=== PATIENT | female | born 1990 | race Two or more races ===

== ENCOUNTER 2018-11-07 05:23 | Emergency (ER) | payer MEDICAID, OTHER ==
[~2018-11-07] VITALS: Ht 149.9 cm; Wt 90.7 kg
[2018-11-07 05:40] VITALS: BP 120/82
== END 2018-11-07 07:11 | disposition left against medical advice (07) ==
LOC: ER 05:26
DX: R11.2 Nausea with vomiting, unspecified (principal); R50.9 Fever, unspecified; Z53.21 Procedure and treatment not carried out due to patient leaving prior to being seen by health care provider

== ENCOUNTER 2020-02-27 11:13 | Emergency (ER) | payer MEDICAID ==
[~2020-02-27] VITALS: Ht 149.9 cm; Wt 90.7 kg
[2020-02-27 11:22] VITALS: BP 162/94
[2020-02-27 12:00] LABS: Urine Bacteria NONE SEEN /hpf (None Seen); Urine Blood Negative /uL (Negative); Urine WBC 1 /hpf (0 - 5)
[2020-02-27 12:30] LABS: Basophils # (auto) 0 10 ^3/uL (0-0.2); Basophils % (auto) 0.5 % (0.0-2.0); Eosinophils # (auto) 0.3 10 ^3/uL (0-0.8); Eosinophils % (auto) 6.4 % (0.0-7.0); Hematocrit 42.7 % (36.0-46.0); Hemoglobin 14.5 g/dL (12.2-16.2); Lymphocytes # (auto) 1.6 10 ^3/uL (0.4-5.4); Lymphocytes % (auto) 35.2 % (10.0-50.0); Mean Corpuscular Volume 94.2 fL (80.0-100.0); Monocytes # (auto) 0.6 10 ^3/uL (0-1.3); Monocytes % (auto) 13.2 % (0.0-12.0); Neutrophils # (auto) 2.1 10 ^3/uL (1.6-8.6); Neutrophils % (auto) 44.7 % (37.0-80.0); Nucleated Red Blood Cells % 0.1 %; Platelet Count (auto) 325 10^3/uL (140-450); Red Blood Cells 4.53 10^6/uL (4.0-5.20); Red Cell Distribution Width 13.1 % (11.8-14.3); White Blood Cell 4.6 10^3/uL (4.4-10.8)
[2020-02-27 12:48] LABS: Albumin 3.8 g/dL (3.4-5.0); BUN/Creatinine Ratio 16.9; Potassium 3.8 mmol/L (3.5-5.1)
[2020-02-27 12:51] LABS: Bilirubin, Total 0.3 mg/dL (0.2-1.0); Total Protein 8.1 g/dL (6.4-8.2)
== END 2020-02-27 16:10 | disposition home or self-care (01) ==
LOC: ER 11:13
DX: U07.1 COVID-19 (principal); R05 Cough; R51 Headache; J45.909 Unspecified asthma, uncomplicated; Z32.02 Encounter for pregnancy test, result negative
CPT/HCPCS: 36415; 71045; 80053; 81001; 81025; 85025; 87070; 87635; 87804; 87880

== ENCOUNTER 2025-07-28 18:59 | Inpatient (IN) | payer MEDICAID ==
[~2025-07-28] VITALS: Ht 149.9 cm; Wt 87.8 kg
--- NOTE | 2025-07-28 19:45 | ED.PDOC ---
GI ASSESSMENT HPI Comments 34-year-old female came to ER for abdominal pain. Patient denies any history of abdominal surgeries. States she has been having upper abdominal pain for the past month, progressively worsened in the past 2 days. Noted right upper quadrant abdominal pain Associated with nausea or vomiting. Patient denies yuriy ng , had an 2 weeks ago Chief Complaint: Abdominal Pain Time Seen by MD: 19:45 Reviewed Notes: Nurses Notes Allergies: Coded Allergies: NO KNOWN ALLERGIES (Unverified , 11/07/18) Information Source: Patient Mode of Arrival: Ambulatory Timing: Days Duration: Intermittent Past Medical History PAST MEDICAL HISTORY: Anxiety, Asthma Surgical History: Denies all surgeries CREATIVE SERVICES DESIGNER History: No Pertinent CREATIVE SERVICES DESIGNER History Family History Family History: Reviewed,noncontributory to illness Social History Smoker: Non-Smoker Alcohol: Denies ETOH Use Drugs: Denies Drug Use Lives In: Home Constitutional: denies: chills, diaphoresis, fatigue, fever, malaise, sweats, weakness, others EENTM: denies: blurred vision, double vision, ear bleeding, ear discharge, ear drainage, ear pain, ear ringing, eye pain, eye redness, hearing loss, mouth pa in, mouth swelling, nasal discharge, nose bleeding, nose congestion, nose pain, photophobia, tearing, throat pain, throat swelling, voice changes, others Respiratory: denies: cough, hemoptysis, orthopnea, SOB at rest, shortness of breath, SOB with excertion, stridor, wheezing, others Cardiovascular: denies: chest pain, dizzy spells, diaphoresis, Dyspnea on exertion, edema, irregular heart beat, left arm pain, lightheadedness, palpitations, PND, syncope, others Gastrointestinal: reports: abdominal pain, nausea; denies: abdomen distended, blood streaked bowels, constipated, diarrhea, dysphagia, difficulty swallowing, hematemesis, melena, poor appetite, poor fluid intake, rectal bleeding, rectal pain, vomiting, others Genitourinary: denies: abnormal vagina bleeding, burning, dyspareunia, dysuria, flank pain, frequency, hematuria, incontinence, pain, , vagina discharge, urgency, others Neurological: denies: dizziness, fainting, headache, left sided numbness, left sided weakness, numbness, paresthesia, pre-existing deficit, right sided numbness, right sided weakness, seizure, speech problems, tingling, tremors, weakness, others Musculoskeletal: denies: back pain, gout, joint pain, joint swelling, muscle pain, muscle stiffness, neck pain, others Integumetry: denies: bruises, change in color, change in hair/nails, dryness, laceration, lesions, lumps, rash, wounds, others Allergic/Immunocompromised: denies: Difficulty Healing, Frequent Infections, Hives, Itching, others Hematologic/Lymphatic: denies: anemia, blood clots, easy bleeding, easy bruising, swollen glands, others Endocrine: denies: excessive hunger, excessive sweating, excessive thirst, excessive urination, flushing, intolerance to cold, intolerance to heat, unexplained weight gain, unexplained weight loss, others Psychiatric: denies: anxiety, bipolar disorder, depression, hopeless, panic disorder, schizophrenia, sleepless, suicidal, others Physical Exam General Appearance: No Apparent Distress, Normal HEENT: Normal ENT Inspection, Pharynx Normal, TMs Normal Neck: Full Range of Motion, Non-Tender, Normal, Normal Inspection Respiratory: Chest Non-Tender, Lungs Clear, No Accessory Muscle Use, No Respiratory Distress, Normal Breath Sounds Cardiovascular: No Edema, No JVD, No Murmur, No Gallop, Normal Peripheral Pulses, Regular Rate/Rhythm Breast Exam: Deferred Gastrointestinal: No Organomegaly, No Pulsatile Mass, Normal Bowel Sounds, RUQ, Soft, Tenderness Genitalia: Deferred Pelvic: Deferred Rectal: Deferred Extremities: No calf tenderness, Normal capillary refill, Normal inspection, Normal range of motion, Non-tender, No pedal edema Musculoskeletal : Apperance: Normal Neurologic: Alert, oral and maxillofacial surgery II-XII nml as Tested, No Motor Deficits, Normal Affect, Normal Mood, No Sensory Deficits Cerebellar Function: Normal Reflexes: Normal Skin: Dry, Normal Color, Warm Lymphatic: No Adenopathy Was a procedure done? Was a procedure done?: No GI differential Dx Differential Diagnosis: Cholecystitis, Diverticular disease, Gastritis/PUD, Gastroenteritis, Pancreatitis, UTI, Urolithiasis X-Ray, Labs, Meds, VS Vital Signs Date Time Temp Pulse Resp B/P (MAP) Pulse Ox O2 Delivery O2 Flow Rate FiO2 07/28/25 20:43 91 18 134/94 07/28/25 20:31 91 18 99 Room Air* 0 21 07/28/25 20:30 98.3 91 18 134/91 (105) 99 98.3 07/28/25 19:04 97.0 84 18 143/100 96 97.0 Lab Test 07/28/25 19:53 07/28/25 19:45 Range/Units White Blood Count 10.3 4.4-10.8 10^3/uL Red Blood Count 4.04 4.0-5.20 10^6/uL Hemoglobin 12.8 12.2-16.2 g/dL Hematocrit 37.5 36.0-46.0 % Mean Corpuscular Volume 92.9 80.0-100.0 fL Mean Corpuscular Hemoglobin 31.7 28.0-32.0 pg Mean Corpuscular Hemoglobin Concent 34.1 32.0-36.0 g/dL Red Cell Distribution Width 13.1 11.8-14.3 % Platelet Count 510 H 140-450 10^3/uL Mean Platelet Volume 8.0 6.9-10.8 fL Neutrophils (%) (Auto) 59.3 37.0-80.0 % Lymphocytes (%) (Auto) 31.4 10.0-50.0 % Monocytes (%) (Auto) 6.0 0.0-12.0 % Eosinophils (%) (Auto) 3.0 0.0-7.0 % Basophils (%) (Auto) 0.3 0.0-2.0 % Neutrophils # (Auto) 6.1 1.6-8.6 10 ^3/uL Lymphocytes # (Auto) 3.2 0.4-5.4 10 ^3/uL Monocytes # (Auto) 0.6 0-1.3 10 ^3/uL Eosinophils # (Auto) 0.3 0-0.8 10 ^3/uL Basophils # (Auto) 0 0-0.2 10 ^3/uL Nucleated Red Blood Cells 0.0 % Sodium Level 142 136-145 mmol/L Potassium Level 4.2 3.5-5.1 mmol/L Chloride Level 105 98-107 mmol/L Carbon Dioxide Level 27 20-31 mmol/L Anion Gap 10 5-15 Blood Urea Nitrogen 15 9-23 mg/dL Creatinine 0.67 0.550-1.02 mg/dL Glomerular Filtration Rate Calc 116 >90 mL/min BUN/Creatinine Ratio 22.4 H 10.0-20.0 Serum Glucose 94 74-106 mg/dL Calcium Level 9.9 8.7-10.4 mg/dL Total Bilirubin 0.2 0.2-1.0 mg/dL Aspartate Amino Transferase (AST) 16 13-40 U/L Alanine Aminotransferase (ALT) 20 7-40 U/L Alkaline Phosphatase 51 46-116 U/L Total Protein 7.5 5.7-8.2 g/dL Albumin 4.8 3.2-4.8 g/dL Lipase 40 12-53 U/L Urine Color Yellow Yellow Urine Clarity Clear Clear Urine pH 6.0 5.0-9.0 Urine Specific [place] 1.040 H 1.001-1.035 Urine Protein Trace H Negative Urine Ketones Trace Negative Urine Blood Negative Negative /uL Urine Nitrite Negative Negative Urine Bilirubin Negative Negative Urine Urobilinogen 2 H Negative mg/dL Urine Leukocyte Esterase Negative Negative /uL Urine RBC <1 0 - 4 /hpf Urine Microscopic WBC 4 0-5 /HPF Urine Squamous Epithelial Cells Few <5 /hpf Urine Calcium Oxalate Crystals Mod None Seen Urine Bacteria None seen None Seen /hpf Urine Mucus Few None Seen Urine Glucose Normal Normal mg/dL Urine Test Negative Negative Current Medications Medications (Trade) Dose Ordered Sig/Marilin Route Start Time Stop Time Status Last Admin Ondansetron HCl (Zofran) 4 mg ONCE ONCE IV 07/28/25 19:30 07/28/25 19:31 DC 07/28/25 20:44 Sodium Chloride 1,000 ml @ 1,000 mls/hr Q1H ONCE IVB 07/28/25 19:30 07/28/25 20:29 DC 07/28/25 20:50 Morphine Sulfate 4 mg ONCE ONCE IV 07/28/25 19:30 07/28/25 19:31 DC 07/28/25 20:43 Exam: CT CT AB PEL WITH IV CON ONLY History: abd pain Comparison Study: None TECHNIQUE: A digital parking enforcement officer image was obtained. During the uneventful, intravenous administration of contrast material, multislice data acquisition was obtained through the abdomen and pelvis. The data set was subsequently reconstructed into multiplanar reformats. RADIATION DOSE: CTDI vol 18.81 mGy. DLP 1055.67 mGy.cm Findings: Lungs: There is minimal atelectasis/scarring. Liver: Hepatomegaly. Spleen: Unremarkable. Pancreas: Unremarkable. Gallbladder: There is gallbladder wall thickening. Adrenals: Unremarkable Kidneys: Unremarkable. Pelvic Viscera: 4.8 cm right adnexal cyst. 3.2 cm left adnexal cyst. Vasculature: Unremarkable. Retroperitoneum: Unremarkable. Bowel: No bowel obstruction. The appendix is normal. Musculoskeletal: Unremarkable. Soft tissues: Unremarkable Impression: 1. Nonspecific gallbladder wall thickening. Consider right upper quadrant ultrasound in further assessment. 2. Bilateral pelvic cysts, which may be further assessed with pelvic ultrasound as clinically indicated. Time of 1ST Reevaluation: 19:42 Reevaluation 1ST: Unchanged Patient Education/Counseling: Diagnosis, Treatment Family Education/Counseling: No Family Present SEPSIS Sepsis Screen Date sepsis recognized/suspect: Jul 28, 2025 Time Sepsis recognized/suspect: 1904 Recent Procedure: No On Antibiotic Therapy: No Respiratory Rate >20: No Heart Rate >90: No Temp<36 C (96.8 F) or >38.3 C: No SBP <90 or MAP <65 mmHG: No New Acute Mental Status Change: No Is the patient on CPAP, BIPAP,: No Physician Orders Ct Ab Pel With Iv Con Only (07/28/25 19:28) Gallbladder (07/28/25 22:29) Zosyn Extended Infusion (07/29/25 00:15) Vital Signs Date Time Temp Pulse Resp B/P (MAP) Pulse Ox O2 Delivery O2 Flow Rate FiO2 07/28/25 20:43 91 18 134/94 07/28/25 20:31 91 18 99 Room Air* 0 21 07/28/25 20:30 98.3 91 18 134/91 (105) 99 98.3 07/28/25 19:04 97.0 84 18 143/100 96 97.0 Laboratory Tests Test 07/28/25 19:53 White Blood Count 10.3 10^3/uL (4.4-10.8) Medications Medications Dose Ordered Sig/Marilin Route Start Time Stop Time Status Last Admin Dose Admin Morphine Sulfate 4 mg ONCE ONCE IV 07/28/25 19:30 07/28/25 19:31 DC 07/28/25 20:43 Ondansetron HCl 4 mg ONCE ONCE IV 07/28/25 19:30 07/28/25 19:31 DC 07/28/25 20:44 Sodium Chloride 1,000 ml @ 1,000 mls/hr Q1H ONCE IVB 07/28/25 19:30 07/28/25 20:29 DC 07/28/25 20:50 Departure 1 Departure Time of Disposition: 00:16 Impression: Primary Impression: Acute cholecystitis Disposition: ADMITTED INPATIENT Admit to: Med Surg Condition: Guarded Discharged With: Self Comments 34-year-old female with severe right upper quadrant pain. White blood cell count upper limits of normal. CT of the abdomen and pelvis showed a distended gallbladder. Ultrasound of the gallbladder shows gallstones in the gallbladder wall is upper limits of normal. Patient will need to be admitted for early cholecystitis. Patient was given IV Zosyn antibiotics Critical Care Note Critical Care Time?: Yes (35 min-critical care time only) Critical care comment: Total critical care time: Approximately 36 minutes Due to a high probability of clinically significant, life threatening deterioration, the patient required my highest level of preparedness to intervene emergently and I personally spent this critical care time directly and personally managing the patient. This critical care time included obtaining a history; examining the patient; pulse oximetry; ordering and review of studies; arranging urgent treatment with development of a management plan; evaluation of patient's response to treatment; frequent reassessment; and, discussions with ot her providers. This critical care time was performed to assess and manage the high probability of imminent, life-threatening deterioration that could result in multi-organ failure. It was exclusive of separately billable procedures and treating other patients. Stability Stability form required: No Heart Score Heart Score: Heart Score Response (Comments) Value History N/A 0 EKG N/A 0 Age N/A 0 Risk Factors N/A 0 Troponin N/A 0 Total 0 I personally scribed for NADIYA BLANCHARD MD ([email or web address]) on 07/28/25 at 19:45. Electronically submitted by Ozzie Jaquez ([email or web address]). I personally scribed for NADIYA BLANCHARD MD ([email or web address]) on 07/28/25 at 22:28. Electronically submitted by Ozzie Jaquez [email or web address]). NADIYA BLANCHARD MD Jul 28, 2025 19:45
[2025-07-28 19:57] LABS: Hematocrit 37.5 % (36.0-46.0); Hemoglobin 12.8 g/dL (12.2-16.2); Mean Corpuscular Hemoglobin 31.7 pg (28.0-32.0); Mean Corpuscular Volume 92.9 fL (80.0-100.0); Nucleated Red Blood Cells % 0.0 %
[2025-07-28 20:14] LABS: Alanine Aminotransferase 20 U/L (7-40); Albumin 4.8 g/dL (3.2-4.8); Alkaline Phosphatase 51 U/L (46-116); Anion Gap 10 (5-15); BUN/Creatinine Ratio 22.4 (10.0-20.0); Blood Urea Nitrogen 15 mg/dL (9-23); Calcium 9.9 mg/dL (8.7-10.4); Carbon Dioxide 27 mmol/L (20-31); Chloride 105 mmol/L (98-107); Glucose 94 mg/dL (74-106); Lipase 40 U/L (12-53); Potassium 4.2 mmol/L (3.5-5.1); Sodium 142 mmol/L (136-145); Total Protein 7.5 g/dL (5.7-8.2)
[2025-07-28 20:25] LABS: Bilirubin, Total 0.2 mg/dL (0.2-1.0)
[2025-07-28 20:31] VITALS: PULSE 91; RESP 18; O2SAT 99
[2025-07-28] MEDS: MORPHINE SULFATE 4 MG/ML SYR/VIAL IV ONE (20:43)
[2025-07-28] MEDS: ONDANSETRON HCL 4 MG/2 ML VIAL IV ONE (20:44)
[2025-07-28] MEDS: SODIUM CHLORIDE 0.9% 1,000 ML IVB ONE (20:50)
[2025-07-28] MEDS: IOHEXOL 300 MG/ML 100ML BOTTLE IJ ONE (21:06)
[2025-07-28 21:25] LABS: Urine Protein, UAD TRACE (Negative)
--- NOTE | 2025-07-28 22:20 | DVH ---
Exam: CT CT AB PEL WITH IV CON ONLY History: abd pain Comparison Study: None TECHNIQUE: A digital mixer diamond powder image was obtained. During the uneventful, intravenous administration of c ontrast material, multislice data acquisition was obtained through the abdomen and pelvis. The data s et was subsequently reconstructed into multiplanar reformats. RADIATION DOSE: CTDI vol 18.81 mGy. DLP 1055.67 mGy.cm Findings: Lungs: There is minimal atelectasis/scarring. Liver: Hepatomegaly. Spleen: Unremarkable. Pancreas: Unremarkable. Gallbladder: There is gallbladder wall thickening. Adrenals: Unremarkable Kidneys: Unremarkable. Pelvic Viscera: 4.8 cm right adnexal cyst. 3.2 cm left adnexal cyst. Vasculature: Unremarkable. Retroperitoneum: Unremarkable. Bowel: No bowel obstruction. The appendix is normal. Musculoskeletal: Unremarkable. Soft tissues: Unremarkable Impression: 1. Nonspecific gallbladder wall thickening. Consider right upper quadrant ultrasound in further asse ssment. 2. Bilateral pelvic cysts, which may be further assessed with pelvic ultrasound as clinically indicat ed.
--- NOTE | 2025-07-28 23:37 | DVH ---
CLINICAL INFORMATION: 34 years old, Female; RUQ pain. TECHNIQUE: Grayscale sonographic imaging of the right upper quadrant of the abdomen was performed, a ssisted by color Doppler techniques. COMPARISON: None FINDINGS: The gallbladder wall measures 3 mm in thickness, upper limits of normal. No stones are se en. Negative reported sonographic Bettencourt's sign. The common bile duct was not well-visualized. The liver measures 18.2 cm and demonstrates increased hepatic echogenicity. The pancreas is partly obscured, likely by bowel gas. The visualized portions appear normal. The right kidney measures 11.3 cm. There is no hydronephrosis. Right renal cortical echogenicity an d cortical thickness are within normal limits. IMPRESSION: 1. Cholelithiasis with gallbladder wall measuring upper limits of normal. Acute cholecystitis cannot be excluded in the appropriate clinical setting. 2. Increased hepatic echogenicity may reflect hepatic steatosis or intrinsic hepatocellular disease.
[2025-07-29] VITALS (9 sets, daily range): BP systolic 93–111; BP diastolic 56–69; PULSE 73–86; RESP 14–24; TEMP 97.9–98.8; O2SAT 96–100
[2025-07-29] MEDS ORDERED: HYDROcodone-ACET 5/325MG TAB PO PRN (00:30)
[2025-07-29] MEDS ORDERED: MORPHINE SULFATE INJ 2 MG/ml SYRG IV PRN ×2 (00:30→00:45)
--- NOTE | 2025-07-29 00:38 | DVHHP2 ---
History of Present Illness Reason for Visit: Acute cholecystitis History of Present Illness The patient is a 34-year-old female with past medical history of asthma and anxiety who presented to [facility] ED with complaint of abdominal pain. Patient states she has been experiencing upper abdominal pain for the past month, progressively get worse in the past 2 days, associated with nausea and vomiting, getting worse today that prompted this visit. Patient reports she had an 2 weeks ago. Patient was seen and evaluated in the ED, laboratory data shows WBC 10.3, platelets 510, sodium 142, potassium 4.2, BUN 15, creatinine 0.67, glucose 94, calcium 9.9, lipase 40, blood pressure 134/94, heart rate 92, temperature 98.3 F, O2 saturation 99% on room air. Abdomen/pelvis CT revealing cholelithiasis with gallbladder wall measuring upper limits of normal, acute cholecystitis can not be excluded in the appropriate clinical setting. Increased hepatic echogenicity may reflect hepatic steatosis intrinsic hepatocellular disease. Patient was started on IV antibiotic regimen Zosyn, please see medication orders section in the computer. On my assessment, patient denied chest pain, no headache, no dizziness, no shortness of breaths, no abdominal pain, nausea or vomiting at this moment, no fever, no chills. Patient was admitted for further evaluation and medical management. Past Medical History Anxiety, Asthma Past Surgical History Denies all surgeries Family History Reviewed, noncontributory to the management of this case. Past Social History The patient lives at home, denies smoking, alcohol or illicit drugs abuse. Review of Systems Constitutional: No: Fever, Chills, Sweats, Weakness, Malaise, Other Eyes: No: Pain, Vision change, Conjunctivae inflammation, Eyelid inflammation, Other, Redness ENT: No: Ear pain, Ear discharge, Nose pain, Nose discharge, Nose congestion, Mouth pain, Mouth swelling, Throat pain, Throat swelling, Other Respiratory: No: Cough, Dry, Shortness of breath, SOB with excertion, Wheezing, Hemoptysis, Pleuritic Pain, Sputum, Wheezing, Other Cardiovascular: No: Chest Pain, Palpitations, Orthopnea, Paroxysmal Noc. Dyspnea, Edema, Lt Headedness, Other Gastrointestinal: Nausea, Vomiting, Abdominal Pain; No: Diarrhea, Constipation, Melena, Hematochezia, Other Genitourinary: No Dysuria, No Frequency, No Incontinence, No Hematuria, No Retention, No Other Musculoskeletal: No: other, neck pain, shoulder pain, arm pain, back pain, hand pain, leg pain, foot pain Skin: No: Rash, Lesions, Jaundice, Bruising, Other Neurological: No: Weakness, Numbness, Incoordination, Change in speech, Confusion, Seizures, Other Allergies: Coded Allergies: NO KNOWN ALLERGIES (Unverified , 11/07/18) Medications Current Medications Medications Dose Ordered Sig/Marilin Route Start Time Stop Time Status Last Admin Dose Admin Piperacillin Sod/ Tazobactam Sod 100 ml @ 25 mls/hr Q8HR IV 07/29/25 06:00 UNV Acetaminophen/ Hydrocodone Bitart 1 tab Q4HP PRN PO 07/29/25 00:30 UNV Ondansetron HCl 4 mg Q4HP PRN IV 07/29/25 00:30 UNV Acetaminophen 650 mg Q6HP PRN PO 07/29/25 00:30 UNV Morphine Sulfate 2 mg Q4HPRN PRN IV 07/29/25 00:30 UNV Exam Vital Signs Vital Signs Date Time Temp Pulse Resp B/P (MAP) Pulse Ox O2 Delivery O2 Flow Rate FiO2 07/28/25 20:43 91 18 134/94 07/28/25 20:31 99 Room Air* 0 21 07/28/25 20:30 98.3 98.3 General Appearance: Alert, Oriented X3, Cooperative, No acute distress HEENT: Atraumatic, PERRLA, EOMI, Mucous membr. moist/pink Respiratory: Normal air movement Cardiovascular: Regular rate, Normal S1, Normal S2, No murmurs Abdominal: Normal bowel sounds, Soft, No hepatospenomegaly, No masses, Other (Reports tenderness) Extremities: No clubbing, No cyanosis, No edema, Normal pulses, No tenderness/swelling Skin: No rashes, No breakdown, No significant lesion Neuro: Normal gait, Normal speech, Strength at 5/5 X4 ext, Normal tone, Sensation intact, Cranial nerves 3-12 NL, Reflexes 2+ Psych/Mental Status: Mental status NL, Mood NL Labs/Xrays Labs Test 07/28/25 19:53 07/28/25 19:45 Range/Units White Blood Count 10.3 4.4-10.8 10^3/uL Red Blood Count 4.04 4.0-5.20 10^6/uL Hemoglobin 12.8 12.2-16.2 g/dL Hematocrit 37.5 36.0-46.0 % Mean Corpuscular Volume 92.9 80.0-100.0 fL Mean Corpuscular Hemoglobin 31.7 28.0-32.0 pg Mean Corpuscular Hemoglobin Concent 34.1 32.0-36.0 g/dL Red Cell Distribution Width 13.1 11.8-14.3 % Platelet Count 510 H 140-450 10^3/uL Mean Platelet Volume 8.0 6.9-10.8 fL Neutrophils (%) (Auto) 59.3 37.0-80.0 % Lymphocytes (%) (Auto) 31.4 10.0-50.0 % Monocytes (%) (Auto) 6.0 0.0-12.0 % Eosinophils (%) (Auto) 3.0 0.0-7.0 % Basophils (%) (Auto) 0.3 0.0-2.0 % Neutrophils # (Auto) 6.1 1.6-8.6 10 ^3/uL Lymphocytes # (Auto) 3.2 0.4-5.4 10 ^3/uL Monocytes # (Auto) 0.6 0-1.3 10 ^3/uL Eosinophils # (Auto) 0.3 0-0.8 10 ^3/uL Basophils # (Auto) 0 0-0.2 10 ^3/uL Nucleated Red Blood Cells 0.0 % Sodium Level 142 136-145 mmol/L Potassium Level 4.2 3.5-5.1 mmol/L Chloride Level 105 98-107 mmol/L Carbon Dioxide Level 27 20-31 mmol/L Anion Gap 10 5-15 Blood Urea Nitrogen 15 9-23 mg/dL Creatinine 0.67 0.550-1.02 mg/dL Glomerular Filtration Rate Calc 116 >90 mL/min BUN/Creatinine Ratio 22.4 H 10.0-20.0 Serum Glucose 94 74-106 mg/dL Calcium Level 9.9 8.7-10.4 mg/dL Total Bilirubin 0.2 0.2-1.0 mg/dL Aspartate Amino Transferase (AST) 16 13-40 U/L Alanine Aminotransferase (ALT) 20 7-40 U/L Alkaline Phosphatase 51 46-116 U/L Total Protein 7.5 5.7-8.2 g/dL Albumin 4.8 3.2-4.8 g/dL Lipase 40 12-53 U/L Urine Color Yellow Yellow Urine Clarity Clear Clear Urine pH 6.0 5.0-9.0 Urine Specific [place] 1.040 H 1.001-1.035 Urine Protein Trace H Negative Urine Ketones Trace Negative Urine Blood Negative Negative /uL Urine Nitrite Negative Negative Urine Bilirubin Negative Negative Urine Urobilinogen 2 H Negative mg/dL Urine Leukocyte Esterase Negative Negative /uL Urine RBC <1 0 - 4 /hpf Urine Microscopic WBC 4 0-5 /HPF Urine Squamous Epithelial Cells Few <5 /hpf Urine Calcium Oxalate Crystals Mod None Seen Urine Bacteria None seen None Seen /hpf Urine Mucus Few None Seen Urine Glucose Normal Normal mg/dL Urine Test Negative Negative PATIENT: MOIRA WORRELL ACCT: [id number] UNIT: [id number] : 1990 LOC: ER ROOM / BED: / AGE / SEX: 34 / F ADM STATUS: REG ER SERVICE 27 ORDERING PHYSICIAN: NADIYA BLANCHARD MD PROCEDURE(s): ABPLIV - CT AB PEL WITH IV CON ONLY REASON: abd pain ORDER NUMBER(s): [id number], ACCESSION NUMBER(s): [id number] Exam: CT CT AB PEL WITH IV CON ONLY History: abd pain Comparison Study: None TECHNIQUE: A digital administrative support assoc image was obtained. During the uneventful, intravenous administration of contrast material, multislice data acquisition was obtained through the abdomen and pelvis. The data set was subsequently reconstructed into multiplanar reformats. RADIATION DOSE: CTDI vol 18.81 mGy. DLP 1055.67 mGy.cm Findings: Lungs: There is minimal atelectasis/scarring. Liver: Hepatomegaly. Spleen: Unremarkable. Pancreas: Unremarkable. Gallbladder: There is gallbladder wall thickening. Adrenals: Unremarkable Kidneys: Unremarkable. Pelvic Viscera: 4.8 cm right adnexal cyst. 3.2 cm left adnexal cyst. Vasculature: Unremarkable. Retroperitoneum: Unremarkable. Bowel: No bowel obstruction. The appendix is normal. Musculoskeletal: Unremarkable. Soft tissues: Unremarkable Impression: 1. Nonspecific gallbladder wall thickening. Consider right upper quadrant ultrasound in further assessment. 2. Bilateral pelvic cysts, which may be further assessed with pelvic ultrasound as clinically indicated. ORDERING PHYSICIAN: NADIYA BLANCHARD MD PROCEDURE(s): GBUS - GALLBLADDER REASON: RUQ pain ORDER NUMBER(s): [id number], ACCESSION NUMBER(s): [id number] CLINICAL INFORMATION: 34 years old, Female; RUQ pain. TECHNIQUE: Grayscale sonographic imaging of the right upper quadrant of the abdomen was performed, assisted by color Doppler techniques. COMPARISON: None FINDINGS: The gallbladder wall measures 3 mm in thickness, upper limits of normal. No stones are seen. Negative reported sonographic Bettencourt's sign. The common bile duct was not well-visualized. The liver measures 18.2 cm and demonstrates increased hepatic echogenicity. The pancreas is partly obscured, likely by bowel gas. The visualized portions appear normal. The right kidney measures 11.3 cm. There is no hydronephrosis. Right renal cortical echogenicity and cortical thickness are within normal limits. IMPRESSION: 1. Cholelithiasis with gallbladder wall measuring upper limits of normal. Acute cholecystitis cannot be excluded in the appropriate clinical setting. 2. Increased hepatic echogenicity may reflect hepatic steatosis or intrinsic hepatocellular disease. SEPSIS Sepsis Screen Date sepsis recognized/suspect: Jul 28, 2025 Time Sepsis recognized/suspect: 1904 Recent Procedure: No On Antibiotic Therapy: No Respiratory Rate >20: No Heart Rate >90: No Temp<36 C (96.8 F) or >38.3 C: No SBP <90 or MAP <65 mmHG: No New Acute Mental Status Change: No Is the patient on CPAP, BIPAP,: No Physician Orders Ct Ab Pel With Iv Con Only (07/28/25 19:28) Gallbladder (07/28/25 22:29) Piperacillin-Tazob 3.375gm (Zosyn 3.375g (07/29/25 00:15) Complete Blood Count (07/29/25 04:00) Comprehensive Metabolic Panel (07/29/25 04:00) Piperacillin-Tazob 3.375gm (Zosyn 3.375g (07/29/25 06:00) * Surgical Consult (07/29/25 ) Allergies (07/29/25 00:28) Code Status (07/29/25 00:28) Oxygen Per Hour (07/29/25 00:28) Hydrocodone-Acet 5/325mg Tab (Tavernier 5/32 (07/29/25 00:30) Ondansetron Hcl (Zofran) (07/29/25 00:30) Complete Blood Count (07/30/25 04:00) Comprehensive Metabolic Panel (07/30/25 04:00) Condition: Serious (07/29/25 00:28) Acetaminophen Tablet (Tylenol Tablet) (07/29/25 00:30) Clear Liq Diet (07/29/25 Breakfast) Bedrest With Bathroom Privileg (07/29/25 00:28) Morphine Sulfate Injection (07/29/25 00:30) Sequential Compression Device (07/29/25 ) Vital Signs Date Time Temp Pulse Resp B/P (MAP) Pulse Ox O2 Delivery O2 Flow Rate FiO2 07/28/25 20:43 91 18 134/94 07/28/25 20:31 91 18 99 Room Air* 0 21 07/28/25 20:30 98.3 91 18 134/91 (105) 99 98.3 07/28/25 19:04 97.0 84 18 143/100 96 97.0 Laboratory Tests Test 07/28/25 19:53 White Blood Count 10.3 10^3/uL (4.4-10.8) Medications Medications Dose Ordered Sig/Marilin Route Start Time Stop Time Status Last Admin Dose Admin Morphine Sulfate 4 mg ONCE ONCE IV 07/28/25 19:30 07/28/25 19:31 DC 07/28/25 20:43 4 MG Ondansetron HCl 4 mg ONCE ONCE IV 07/28/25 19:30 07/28/25 19:31 DC 07/28/25 20:44 4 MG Sodium Chloride 1,000 ml @ 1,000 mls/hr Q1H ONCE IVB 07/28/25 19:30 07/28/25 20:29 DC 07/28/25 20:50 1,000 MLS/HR Assessment/Plan Assessment/Plan Acute cholecystitis Thrombocytosis Acute abdominal pain Intractable nausea and vomiting Plan 1. Admit to med surge unit 2. Breathing treatment 3. Pain control management 4. IV antibiotic management 5. Management of fluids and electrolytes 6. Consultation for surgery 7. Diagnostic test abdomen/pelvis CT 8. DVT prophylaxis-on SCDs 9. Repeat labs CBC, CMP in a.m. 10. Continue with current medical management 11. Treatment plan discussed with patient and RN. Patient verbalized understanding. Plan discussed with: Patient, Other (RN) My Orders Orders - DOMINGO AGUILAR DNP Procedure Category Date Status Time Complete Blood Count LAB 07/29/25 Logged 04:00 Comprehensive LAB 07/29/25 Logged Metabolic Panel 04:00 Piperacillin-Tazob PHA 07/29/25 Logged 3.375gm (Zosyn 3.375g 06:00 * Surgical Consult CONS 07/29/25 Transmitted Allergies JOHANA 07/29/25 In Process 00:28 Code Status CODE 07/29/25 Transmitted 00:28 Oxygen Per Hour RT 07/29/25 Transmitted 00:28 Hydrocodone-Acet PHA 07/29/25 Logged 5/325mg Tab (Tavernier 00:30 Ondansetron Hcl PHA 07/29/25 Logged (Zofran) 00:30 Complete Blood Count LAB 07/30/25 Verified 04:00 Comprehensive LAB 07/30/25 Verified Metabolic Panel 04:00 Condition: Serious JOHANA 07/29/25 In Process 00:28 Acetaminophen Tablet PHA 07/29/25 Logged (Tylenol Tablet) 00:30 Clear Liq Diet DIET 07/29/25 Transmitted Breakfast Bedrest With Bathroom JOHANA 07/29/25 In Process Privileg 00:28 Morphine Sulfate PHA 07/29/25 Logged Injection 00:30 Sequential JOHANA 07/29/25 In Process Compression Device Problem List: (1) Acute cholecystitis (2) Thrombocytosis (3) Acute abdominal pain (4) Intractable nausea and vomiting Date of Service: Jul 29, 2025 Billing Provider: DOMINGO AGUILAR DNP Common Visit Codes: [id number] INP/OBS CARE (HIGH) DOMINGO AGUILAR DNP Jul 29, 2025 00:38
[2025-07-29] MEDS ORDERED: NITROGLYCERIN 0.4 MG SL TAB SL PRN (00:45)
[2025-07-29] MEDS: PIPERACILLIN-TAZOB 3.375GM 100 ML IV ONE (01:58)
[2025-07-29 04:29] LABS: Nucleated Red Blood Cells % 0.0 %
[2025-07-29 04:32] LABS: Hematocrit 35.6 % (36.0-46.0); Hemoglobin 12.5 g/dL (12.2-16.2); Mean Corpuscular Hemoglobin 32.6 pg (28.0-32.0); Mean Corpuscular Volume 92.8 fL (80.0-100.0)
[2025-07-29 05:00] LABS: Alanine Aminotransferase 15 U/L (7-40); Albumin 4.2 g/dL (3.2-4.8); Anion Gap 10 (5-15); BUN/Creatinine Ratio 15.5 (10.0-20.0); Bilirubin, Total 0.4 mg/dL (0.2-1.0); Blood Urea Nitrogen 9 mg/dL (9-23); Calcium 9.0 mg/dL (8.7-10.4); Carbon Dioxide 25 mmol/L (20-31); Glucose 90 mg/dL (74-106); Potassium 3.9 mmol/L (3.5-5.1); Sodium 143 mmol/L (136-145); Total Protein 6.8 g/dL (5.7-8.2)
[2025-07-29] MEDS: PIPERACILLIN-TAZOB 3.375GM 100 ML IV SCH (05:22)
[2025-07-29 05:24] LABS: Alkaline Phosphatase 44 U/L (46-116); Chloride 108 mmol/L (98-107)
--- NOTE | 2025-07-29 12:56 | DVHPN2 ---
Subjective Continues to report having right upper quadrant pain Reviewed: Care Plan, H&P, Labs, Medications, Previous Orders Changes from previous H/P or p: No Changes Eyes: No Pain, No Vision change, No Conjunctivae inflammation, No Eyelid inflammation, No Other, No Redness ENT: No Ear pain, No Ear discharge, No Nose pain, No Nose discharge, No Nose congestion, No Mouth pain, No Mouth swelling, No Throat pain, No Throat swelling, No Other Cardiovascular: No Chest Pain, No Palpitations, No Orthopnea, No Paroxysmal Noc. Dyspnea, No Edema, No Lt Headedness, No Other Respiratory: No Cough, No Dry, No Shortness of breath, No SOB with excertion, No Wheezing, No Hemoptysis, No Pleuritic Pain, No Sputum, No Other Gastrointestinal: Nausea, Vomiting, Abdominal Pain; No Diarrhea, No Constipation, No Melena, No Hematochezia, No Other Genitourinary: No Dysuria, No Frequency, No Incontinence, No Hematuria, No Retention, No Other Musculoskeletal: No other, No neck pain, No shoulder pain, No arm pain, No back pain, No hand pain, No leg pain, No foot pain Skin: No Rash, No Lesions, No Jaundice, No Bruising, No Other Objective Vitals Vital Signs Date Time Temp Pulse Resp B/P (MAP) Pulse Ox O2 Delivery O2 Flow Rate FiO2 07/29/25 12:37 16 98 Room Air* 0 21 07/29/25 10:00 86 106/69 (81) 07/29/25 00:20 98.9 98.9 General Appearance: Alert, Oriented X3, Cooperative, mild distress HEENT: Atraumatic, PERRLA Lungs: Clear to auscultation, Normal air movement Cardiovascular: Normal S1, Normal S2 Abdomen: Normal bowel sounds, Soft, No tenderness, No hepatospenomegaly Genitourinary: No Apparent Abnormalities Musculoskeletal: Normal sensory function, Normal motor function Extremities: No clubbing, No cyanosis, No edema, Normal pulses, No tenderness/swelling Neuro: Normal speech Skin: Dry, Intact Psych/Mental Status: Mental status NL, Mood NL Medications Current Medications Medications Dose Ordered Sig/Marilin Route Start Time Stop Time Status Last Admin Dose Admin Piperacillin Sod/ Tazobactam Sod 100 ml @ 25 mls/hr Q8HR IV 07/29/25 06:00 07/29/25 05:22 25 MLS/HR Acetaminophen/ Hydrocodone Bitart 1 tab Q4HP PRN PO 07/29/25 00:30 Ondansetron HCl 4 mg Q4HP PRN IV 07/29/25 00:30 Acetaminophen 650 mg Q6HP PRN PO 07/29/25 00:30 Morphine Sulfate 2 mg Q4HPRN PRN IV 07/29/25 00:30 Nitroglycerin 0.4 mg Q5MINP PRN SL 07/29/25 00:45 Morphine Sulfate 2 mg Q30M PRN IV 07/29/25 00:45 Potassium Chloride/Dextrose/ Sod Cl 1,000 ml @ 100 mls/hr Q10H IV 07/29/25 12:45 UNV Laboratory Results Laboratory Tests 07/29/25 04:06 Chemistry Test 07/28/25 19:53 07/29/25 04:06 Albumin 4.8 g/dL (3.2-4.8) 4.2 g/dL (3.2-4.8) Calcium Level 9.9 mg/dL (8.7-10.4) 9.0 mg/dL (8.7-10.4) Total Protein 7.5 g/dL (5.7-8.2) 6.8 g/dL (5.7-8.2) Lipid panel Test 07/28/25 19:53 Lipase 40 U/L (12-53) LFT Test 07/28/25 19:53 07/29/25 04:06 Alanine Aminotransferase (ALT) 20 U/L (7-40) 15 U/L (7-40) Alkaline Phosphatase 51 U/L (46-116) 44 U/L (46-116) L Aspartate Amino Transferase (AST) 16 U/L (13-40) 15 U/L (13-40) Total Bilirubin 0.2 mg/dL (0.2-1.0) 0.4 mg/dL (0.2-1.0) Urinalysis Test 07/28/25 19:45 Urine Color Yellow (Yellow) Urine Clarity Clear (Clear) Urine pH 6.0 (5.0-9.0) Urine Specific [place] 1.040 (1.001-1.035) Urine Protein Trace (Negative) H Urine Ketones Trace (Negative) Urine Blood Negative /uL (Negative) Urine Nitrite Negative (Negative) Urine Bilirubin Negative (Negative) Urine Urobilinogen 2 mg/dL (Negative) H Urine Leukocyte Esterase Negative /uL (Negative) Urine RBC <1 /hpf (0 - 4) Urine Microscopic WBC 4 /HPF (0-5) Urine Squamous Epithelial Cells Few /hpf (<5) Urine Calcium Oxalate Crystals Mod (None Seen) Urine Bacteria None seen /hpf (None Seen) Urine Mucus Few (None Seen) Urine Glucose Normal mg/dL (Normal) Urine Test Negative (Negative) Labs and/or images reviewed: Labs reviewed by me, Image(s) reviewed by me Assessment/Plan Assessment/Plan Impression: -acute cholecystitis -obesity -leukocytosis, rule out sepsis Plan: -clear liquid diet, NPO after midnight -surgical consultation -start IV fluids -preop diagnostic testing. Chest x-ray -continue antibiotic therapy with Zosyn -pain management Total time spent with patient discussing and formulating plan of care: 35 minutes. This medical document was created using an electronic medical record system with [employer]ister[employer] dictation system. Although this document has been carefully reviewed, there may still be some phonetic and typographical errors. These areas are purely typographical due to imperfections of the software programs, and do not reflect any compromise in the patient's medical care. Plan discussed with: Patient, Other (RN) My Orders Orders - TERESA MORRISON NP Procedure Category Date Status Time * Surgical Consult CONS 07/29/25 Transmitted 12:18 Date of Service: Jul 29, 2025 Billing Provider: TERESA MORRISON NP Common Visit Codes: [id number] INP/OBS CARE(HIGH) TERESA MORRISON NP Jul 29, 2025 12:56
[2025-07-29] MEDS ORDERED: MORPHINE SULFATE 4 MG/ML SYR/VIAL IV PRN (13:00)
[2025-07-29 13:43] LABS: INR 0.97 (0.9-1.15); Partial Thromboplastin Time 28.8 SEC (24.5-34.5); Prothrombin Time 10.3 sec (9.3-11.8)
--- NOTE | 2025-07-29 13:54 | DVH ---
CHEST RADIOGRAPH Indication: pre op/pain Technique: Single frontal view of the chest was obtained Comparison: None FINDINGS: Lines and Tubes: None Lungs: No focal consolidation. Pleura: No effusion. No pneumothorax. Cardiomediastinal contours: Unremarkable Bones: No acute osseous abnormality. IMPRESSION: No acute cardiopulmonary disease.
[2025-07-29] MEDS: D5W/SOD CHL 0.45%/KCL 20MEQ 1,000 ML IV SCH (14:26)
[2025-07-29] MEDS: ACETAMINOPHEN 325 MG TAB PO PRN (14:27)
[2025-07-30] VITALS (8 sets, daily range): BP systolic 95–106; BP diastolic 56–69; PULSE 61–99; RESP 14–19; TEMP 97.4–98.9; O2SAT 92–100
[2025-07-30 06:34] LABS: Hematocrit 33.0 % (36.0-46.0); Hemoglobin 11.7 g/dL (12.2-16.2); Mean Corpuscular Hemoglobin 33.1 pg (28.0-32.0); Mean Corpuscular Volume 93.3 fL (80.0-100.0); Nucleated Red Blood Cells % 0.1 %
[2025-07-30 06:52] LABS: Alanine Aminotransferase 20 U/L (7-40); Anion Gap 9 (5-15); BUN/Creatinine Ratio 11.5 (10.0-20.0); Carbon Dioxide 24 mmol/L (20-31); Glucose 75 mg/dL (74-106); Potassium 3.9 mmol/L (3.5-5.1); Sodium 141 mmol/L (136-145); Total Protein 6.0 g/dL (5.7-8.2)
[2025-07-30 06:53] LABS: Albumin 3.7 g/dL (3.2-4.8)
[2025-07-30 06:54] LABS: Bilirubin, Total 0.7 mg/dL (0.2-1.0)
[2025-07-30 06:59] LABS: Alkaline Phosphatase 34 U/L (46-116); Blood Urea Nitrogen 7 mg/dL (9-23); Calcium 8.4 mg/dL (8.7-10.4); Chloride 108 mmol/L (98-107)
[2025-07-30] MEDS ORDERED: SEMA2INJ3 SC (09:50)
--- NOTE | 2025-07-30 10:31 | DVHINCON2 ---
Date of service: Jul 30, 2025 Family History: Patient reports no known family medical history. Allergies: Coded Allergies: NO KNOWN ALLERGIES (Unverified , 11/07/18) Home Meds Reported Medications Semaglutide (Ozempic) 2 Mg/3 Ml Inj, 2 MG SC QWEEKLY, INJ 07/30/25 Current Medications Current Medications Medications (Trade) Dose Ordered Sig/Marilin Route PRN Reason Start Time Stop Time Status Last Admin Potassium Chloride/Dextrose/ Sod Cl 1,000 ml @ 100 mls/hr Q10H IV 07/29/25 12:45 07/29/25 22:45 Morphine Sulfate 2 mg Q4HPRN PRN IV SEVERE PAIN (7-10 PAIN SCALE) 07/29/25 13:00 Morphine Sulfate 2 mg Q30M PRN IV FOR CHEST PAIN 07/29/25 13:00 Vital Signs Vital Signs Date Time Temp Pulse Resp B/P (MAP) Pulse Ox O2 Delivery O2 Flow Rate FiO2 07/30/25 09:00 97.4 79 18 106/68 (81) 100 97.4 07/29/25 20:00 Room Air* 0 21 Labs/Diagnostic Data Labs Test 07/30/25 04:25 07/29/25 13:07 07/28/25 19:53 07/28/25 19:45 Range/Units White Blood Count 6.5 # 4.4-10.8 10^3/uL Red Blood Count 3.53 L 4.0-5.20 10^6/uL Hemoglobin 11.7 L 12.2-16.2 g/dL Hematocrit 33.0 L 36.0-46.0 % Mean Corpuscular Volume 93.3 80.0-100.0 fL Mean Corpuscular Hemoglobin 33.1 H 28.0-32.0 pg Mean Corpuscular Hemoglobin Concent 35.5 32.0-36.0 g/dL Red Cell Distribution Width 12.7 11.8-14.3 % Platelet Count 440 140-450 10^3/uL Mean Platelet Volume 8.3 6.9-10.8 fL Neutrophils (%) (Auto) 45.9 37.0-80.0 % Lymphocytes (%) (Auto) 38.5 10.0-50.0 % Monocytes (%) (Auto) 8.3 0.0-12.0 % Eosinophils (%) (Auto) 6.9 0.0-7.0 % Basophils (%) (Auto) 0.4 0.0-2.0 % Neutrophils # (Auto) 3.0 1.6-8.6 10 ^3/uL Lymphocytes # (Auto) 2.5 0.4-5.4 10 ^3/uL Monocytes # (Auto) 0.5 0-1.3 10 ^3/uL Eosinophils # (Auto) 0.4 0-0.8 10 ^3/uL Basophils # (Auto) 0 0-0.2 10 ^3/uL Nucleated Red Blood Cells 0.1 % Sodium Level 141 136-145 mmol/L Potassium Level 3.9 3.5-5.1 mmol/L Chloride Level 108 H 98-107 mmol/L Carbon Dioxide Level 24 20-31 mmol/L Anion Gap 9 5-15 Blood Urea Nitrogen 7 L 9-23 mg/dL Creatinine 0.61 0.550-1.02 mg/dL Glomerular Filtration Rate Calc 119 >90 mL/min BUN/Creatinine Ratio 11.5 10.0-20.0 Serum Glucose 75 74-106 mg/dL Calcium Level 8.4 L 8.7-10.4 mg/dL Total Bilirubin 0.7 0.2-1.0 mg/dL Aspartate Amino Transferase (AST) 20 13-40 U/L Alanine Aminotransferase (ALT) 20 7-40 U/L Alkaline Phosphatase 34 L 46-116 U/L Total Protein 6.0 5.7-8.2 g/dL Albumin 3.7 3.2-4.8 g/dL Prothrombin Time 10.3 9.3-11.8 sec Prothrombin Time INR 0.97 0.9-1.15 Activated Partial Thromboplast Time 28.8 24.5-34.5 SEC Lipase 40 12-53 U/L Urine Color Yellow Yellow Urine Clarity Clear Clear Urine pH 6.0 5.0-9.0 Urine Specific [place] [employer] 1.040 H 1.001-1.035 Urine Protein Trace H Negative Urine Ketones Trace Negative Urine Blood Negative Negative /uL Urine Nitrite Negative Negative Urine Bilirubin Negative Negative Urine Urobilinogen 2 H Negative mg/dL Urine Leukocyte Esterase Negative Negative /uL Urine RBC <1 0 - 4 /hpf Urine Microscopic WBC 4 0-5 /HPF Urine Squamous Epithelial Cells Few <5 /hpf Urine Calcium Oxalate Crystals Mod None Seen Urine Bacteria None seen None Seen /hpf Urine Mucus Few None Seen Urine Glucose Normal Normal mg/dL Urine Test Negative Negative Assessment 34 YEAR OLD FEMALE WITH RECURRING EPISODES OF POST PRANDIAL RIGHT UPPER QUADRANT PAINS ASSOCIATED WITH NAUSEA, FATTY FOOD INTOLERANCE, PRESENTLY FREE OF PAIN, ONLY PRIOR OPERATION:Csection, vital signs stable, abdomen non tender, no scleral icterus, LFT'S NORMAL BILIRUBIN NORMAL, GALLSTONES ON IMAGING, LAparoscopic vs open cholecystectomy,risks and complications explained in detail. Plan discussed with: Patient REYMUNDO RENTERIA MD Jul 30, 2025 10:31
[2025-07-30] MEDS ORDERED: fentaNYL CITRATE 100 MCG/2 ML VL ONE (10:48)
[2025-07-30] MEDS ORDERED: MIDAZOLAM HCL 2MG/2ML 2ml VIAL (1mg/ml) ONE (10:48)
[2025-07-30] MEDS ORDERED: METOCLOPRAMIDE HCL 5MG/ml INJ 2ml VIAL ONE (10:48)
[2025-07-30] MEDS ORDERED: LIDOCAINE 2% (LOCAL ANESTH.) PF 5ml SDV ONE (10:48)
[2025-07-30] MEDS ORDERED: ONDANSETRON HCL 4 MG/2 ML VIAL ONE (10:48)
[2025-07-30] MEDS ORDERED: ROCURONIUM 10MG/ML 10ML VIAL IV ONE (10:49)
[2025-07-30] MEDS ORDERED: PROPOFOL 10 MG/ML 20 ML IV ONE (10:49)
[2025-07-30] MEDS: D5W/SOD CHL 0.45%/KCL 20MEQ 1,000 ML IV SCH (11:15)
[2025-07-30] MEDS ORDERED: PHENYLEPHRINE HCL 10 MG/ML VL ONE (11:21)
[2025-07-30] MEDS ORDERED: SUGAMMADEX 200mg/2ml Vial (100MG/ML) IV ONE (11:27)
[2025-07-30] MEDS ORDERED: HYDROmorphone HCL 2 MG/ML VL/or syr ONE (11:29)
[2025-07-30] MEDS: POVIDONE IODINE 10 % TOPICAL OINT 30GM TOP ONE (11:39)
--- NOTE | 2025-07-30 11:55 | DVHOP ---
DATE OF SURGERY: 07/30/2025 PREOPERATIVE DIAGNOSES: Cholelithiasis, cholecystitis. POSTOPERATIVE DIAGNOSES: Cholelithiasis, cholecystitis. SURGEON: Mukesh Anderson MD. BUSINESS DEVELOPMENT SALES EXECUTIVE: Scrub nurse. ANESTHESIA: General endotracheal. ANESTHESIOLOGIST: Reyes Gonzalez nurse traffic signal mechanic. PROCEDURES: Laparoscopy, laparoscopic cholecystectomy. DESCRIPTION OF PROCEDURE: Under general endotracheal anesthesia with the patient's skin prepped and draped, a supraumbilical incision was made and Veress needle inserted by the hanging drop technique in order to establish pneumoperitoneum to 15 mmHg pressure by insufflation with carbon dioxide. With the abdomen fully distended, the needle was removed and replaced with a 5 mm trocar port through which a 0-degree viewing laparoscope was inserted and under direct vision, an additional 5 and 10 mm ports inserted through the right anterior axillary line at the level of the umbilicus and the subxiphoid skin in the midline respectively. Instrumentation was introduced and laparoscopy was conducted revealing no obvious unexpected pathology. The gallbladder was affected by chronic and acute cholecystitis and it was almost entirely intrahepatic, which made the operation quite challenging. The gallbladder was grasped with a grasping forceps and adhesions of the omentum were stripped away from the gallbladder fundus. The infundibular portion of the gallbladder was covered with inflammatory tissue and was circumferentially dissected and placed on tension cephalad. The cystic duct and cystic artery were identified, circumferentially dissected, skeletonized, and traced into the hepatocystic triangle to minimize the potential for an inadvertent injury to the common bile duct. The cystic duct and cystic artery were divided between metallic clips close to the gallbladder, again avoiding any potential injury to the common bile duct to the best of my ability. With the cystic duct and cystic artery divided, the gallbladder was resected from its liver bed by electrocautery and traction. The fully mobilized gallbladder was removed by placement in a specimen extraction bag, which was then withdrawn from the peritoneal cavity through the subxiphoid 10 mm port site. Subsequently, the right upper quadrant was profusely irrigated. Irrigant was aspirated. Hemostasis was meticulously inspected and found to be complete. At the termination of the procedure, there was no evidence of bleeding from either the liver bed or from the port sites. Instrumentation was then withdrawn. Pneumoperitoneum was evacuated. Fascia defect closed using #0 Vicryl. Metallic skin liv were used for approximation of skin edges. The patient remained hemodynamically stable throughout the procedure and left the operating room following an accurate needle and sponge counts. The patient's mother, Kika Hoyt, was thoroughly informed by phone call to [phone]. MD JOSE CARLOS Mccoy/EDMUNDO TID: [id number] RECEIPT: [id number]
[2025-07-30] MEDS ORDERED: ONDANSETRON HCL 4 MG/2 ML VIAL IV PRN (12:00)
[2025-07-30] MEDS ORDERED: METOCLOPRAMIDE HCL 5MG/ml INJ 2ml VIAL IV PRN (12:00)
[2025-07-30] MEDS ORDERED: HYDROmorphone HCL 2 MG/ML VL/or syr IV PRN (12:00)
[2025-07-30] MEDS: ACETAMINOPHEN IV 1000 MG/100ML (10MG/ML) IV ONE (12:00)
--- NOTE | 2025-07-30 12:05 | DVHPN2 ---
Subjective Continues to report having right upper quadrant pain Reviewed: Care Plan, H&P, Labs, Medications, Previous Orders Review of systems Patient is assessed in the recovery room Changes from previous H/P or p: No Changes General: Per HPI Eyes: No Pain, No Vision change, No Conjunctivae inflammation, No Eyelid inflammation, No Other, No Redness ENT: No Ear pain, No Ear discharge, No Nose pain, No Nose discharge, No Nose congestion, No Mouth pain, No Mouth swelling, No Throat pain, No Throat swelling, No Other Cardiovascular: No Chest Pain, No Palpitations, No Orthopnea, No Paroxysmal Noc. Dyspnea, No Edema, No Lt Headedness, No Other Respiratory: No Cough, No Dry, No Shortness of breath, No SOB with excertion, No Wheezing, No Hemoptysis, No Pleuritic Pain, No Sputum, No Other Gastrointestinal: Nausea, Vomiting, Abdominal Pain; No Diarrhea, No Constipation, No Melena, No Hematochezia, No Other Genitourinary: No Dysuria, No Frequency, No Incontinence, No Hematuria, No Retention, No Other Musculoskeletal: No other, No neck pain, No shoulder pain, No arm pain, No back pain, No hand pain, No leg pain, No foot pain Skin: No Rash, No Lesions, No Jaundice, No Bruising, No Other Objective Vitals Vital Signs Date Time Temp Pulse Resp B/P (MAP) Pulse Ox O2 Delivery O2 Flow Rate FiO2 07/30/25 09:00 97.4 79 18 106/68 (81) 100 97.4 07/30/25 08:00 Room Air* 0 21 Intake/Output Intake and Output 07/30/25 07:00 Intake Total 1720 ml Balance 1720 ml Intake Oral 1520 ml IV Total 200 ml # Voids 7 General Appearance: Alert, Oriented X3, Cooperative, mild distress HEENT: Atraumatic, PERRLA Lungs: Clear to auscultation, Normal air movement Cardiovascular: Normal S1, Normal S2 Abdomen: Normal bowel sounds, Soft, No tenderness, No hepatospenomegaly, Other (Surgical puncture site dressings dry and intact) Genitourinary: No Apparent Abnormalities Musculoskeletal: Normal sensory function, Normal motor function Extremities: No clubbing, No cyanosis, No edema, Normal pulses, No tenderness/swelling Neuro: Normal speech Skin: Dry, Intact Psych/Mental Status: Mental status NL, Mood NL Medications Current Medications Medications Dose Ordered Sig/Marilin Route Start Time Stop Time Status Last Admin Dose Admin Piperacillin Sod/ Tazobactam Sod 100 ml @ 25 mls/hr Q8HR IV 07/29/25 06:00 07/30/25 06:37 25 MLS/HR Acetaminophen/ Hydrocodone Bitart 1 tab Q4HP PRN PO 07/29/25 00:30 Ondansetron HCl 4 mg Q4HP PRN IV 07/29/25 00:30 Acetaminophen 650 mg Q6HP PRN PO 07/29/25 00:30 07/29/25 14:27 650 MG Nitroglycerin 0.4 mg Q5MINP PRN SL 07/29/25 00:45 Potassium Chloride/Dextrose/ Sod Cl 1,000 ml @ 100 mls/hr Q10H IV 07/29/25 12:45 07/29/25 22:45 100 MLS/HR Morphine Sulfate 2 mg Q4HPRN PRN IV 07/29/25 13:00 Morphine Sulfate 2 mg Q30M PRN IV 07/29/25 13:00 Potassium Chloride/Dextrose/ Sod Cl 1,000 ml @ 120 mls/hr Q8H20M IV 07/30/25 11:15 UNV Ondansetron HCl 4 mg ONCE PRN IV 07/30/25 12:00 07/30/25 12:01 UNV Metoclopramide HCl 10 mg ONCE PRN IV 07/30/25 12:00 07/30/25 12:01 UNV Hydromorphone HCl 0.5 mg Q10M PRN IV 07/30/25 12:00 07/30/25 12:41 UNV Laboratory Results Laboratory Tests 07/30/25 04:25 Chemistry Test 07/30/25 04:25 Albumin 3.7 g/dL (3.2-4.8) Calcium Level 8.4 mg/dL (8.7-10.4) L Total Protein 6.0 g/dL (5.7-8.2) Coagulation Test 07/29/25 13:07 Prothrombin Time 10.3 sec (9.3-11.8) Prothrombin Time INR 0.97 (0.9-1.15) Activated Partial Thromboplast Time 28.8 SEC (24.5-34.5) LFT Test 07/30/25 04:25 Alanine Aminotransferase (ALT) 20 U/L (7-40) Alkaline Phosphatase 34 U/L (46-116) L Aspartate Amino Transferase (AST) 20 U/L (13-40) Total Bilirubin 0.7 mg/dL (0.2-1.0) Urinalysis Test 07/28/25 19:45 Urine Color Yellow (Yellow) Urine Clarity Clear (Clear) Urine pH 6.0 (5.0-9.0) Urine Specific [place] 1.040 (1.001-1.035) Urine Protein Trace (Negative) H Urine Ketones Trace (Negative) Urine Blood Negative /uL (Negative) Urine Nitrite Negative (Negative) Urine Bilirubin Negative (Negative) Urine Urobilinogen 2 mg/dL (Negative) H Urine Leukocyte Esterase Negative /uL (Negative) Urine RBC <1 /hpf (0 - 4) Urine Microscopic WBC 4 /HPF (0-5) Urine Squamous Epithelial Cells Few /hpf (<5) Urine Calcium Oxalate Crystals Mod (None Seen) Urine Bacteria None seen /hpf (None Seen) Urine Mucus Few (None Seen) Urine Glucose Normal mg/dL (Normal) Urine Test Negative (Negative) Labs and/or images reviewed: Labs reviewed by me, Image(s) reviewed by me Assessment/Plan Assessment/Plan Impression: -acute cholecystitis -obesity -leukocytosis, rule out sepsis Plan: Events: Patient is status post laparoscopic cholecystectomy. Surgery uneventful. -continue IV fluids -clear liquid diet -PUD, DVT prophylaxis -Incentive spirometer q.1 hour while awake -continue antibiotic therapy with Zosyn -pain management -repeat labs in a.m. Total time spent with patient discussing and formulating plan of care: 35 minutes. This medical document was created using an electronic medical record system with [employer] dictation system. Although this document has been carefully reviewed, there may still be some phonetic and typographical errors. These areas are purely typographical due to imperfections of the software programs, and do not reflect any compromise in the patient's medical care. Plan discussed with: Patient, Other (RN) My Orders Orders - TERESA MORRISON NP Procedure Category Date Status Time * Surgical Consult CONS 07/29/25 Transmitted 12:18 Chest Xray 1 View XY 07/29/25 Resulted 12:52 Date of Service: Jul 30, 2025 Billing Provider: TERESA MORRISON NP Common Visit Codes: [id number] INP/OBS CARE(HIGH) TERESA MORRISON NP Jul 30, 2025 12:05
[2025-07-30] MEDS: ONDANSETRON HCL 4 MG/2 ML VIAL IV PRN (13:00)
[2025-07-30] MEDS: MORPHINE SULFATE 4 MG/ML SYR/VIAL IV PRN (19:45)
[2025-07-31] VITALS (8 sets, daily range): BP systolic 102–115; BP diastolic 66–76; PULSE 75–94; RESP 14–78; TEMP 97.3–98.9; O2SAT 93–99
[2025-07-31] MEDS ORDERED: ACETAMINOPHEN/CODEINE#3 (300/30mg) TAB PO PRN (05:00)
[2025-07-31] MEDS: ACETAMINOPHEN/CODEINE#3 (300/30mg) TAB PO PRN (05:42)
[2025-07-31 07:19] LABS: Hematocrit 34.8 % (36.0-46.0); Hemoglobin 11.5 g/dL (12.2-16.2); Mean Corpuscular Hemoglobin 31.4 pg (28.0-32.0); Mean Corpuscular Volume 94.9 fL (80.0-100.0); Nucleated Red Blood Cells % 0.0 %
--- NOTE | 2025-07-31 10:54 | DVHPN2 ---
Progress Note Date Seen: Jul 31, 2025 Medical Necessity Reason Pt with a Central, PICC or Fol: No Objective vital signs Vital Sign Date Time Temp Pulse Resp B/P (MAP) Pulse Ox O2 Delivery O2 Flow Rate FiO2 07/31/25 09:04 78 16 104/74 07/31/25 08:50 97.3 95 97.3 07/30/25 20:00 Room Air* 0 21 Total Intake and Output 07/30/25 07/30/25 07/31/25 15:00 23:00 07:00 Intake Total 100 ml 350 ml 840 ml Balance 100 ml 350 ml 840 ml medications Current Medications Medications Dose Ordered Sig/Marilin Route Start Time Stop Time Status Last Admin Dose Admin Piperacillin Sod/ Tazobactam Sod 100 ml @ 25 mls/hr Q8HR IV 07/29/25 06:00 07/31/25 05:45 25 MLS/HR Ondansetron HCl 4 mg Q4HP PRN IV 07/29/25 00:30 07/31/25 08:56 4 MG Acetaminophen 650 mg Q6HP PRN PO 07/29/25 00:30 07/30/25 16:26 650 MG Nitroglycerin 0.4 mg Q5MINP PRN SL 07/29/25 00:45 Morphine Sulfate 2 mg Q4HPRN PRN IV 07/29/25 13:00 07/31/25 09:04 2 MG Morphine Sulfate 2 mg Q30M PRN IV 07/29/25 13:00 Potassium Chloride/Dextrose/ Sod Cl 1,000 ml @ 120 mls/hr Q8H20M IV 07/30/25 11:15 07/30/25 11:15 120 MLS/HR Acetaminophen/ Codeine Phosphate 1 tab Q6HP PRN PO 07/31/25 05:00 UNV Acetaminophen/ Codeine Phosphate 1 tab Q6HP PRN PO 07/31/25 05:15 07/31/25 05:42 1 TAB laboratory and microbiology Laboratory Tests 07/31/25 06:56 07/30/25 04:25 Test 07/30/25 04:25 Range/Units Serum Glucose 75 74-106 mg/dL Problem List/Assessment/Plan Problem List/Assessment/Plan 07/31/25 c/o right shoulder jesus, explained reason for it, abdomen appropriately tender, wound dressings dry and clean, labs reviewed, will advance diet and if she feels well enough to go home she is cleared for discharge Plan discussed with: Patient Dietary Evaluation Review Recommendations by RD: Dietary education by RD Comments: 1) Encourage optimal PO intake 2) Advance to low-fat diet when medically feasible 3) Refer to outpatient RD for weight management 4) Follow-up with gastroenterology 5) Continue to monitor I&O, labs, and skin integrity Expected Outcomes/Goals: 1) appetite and labs to improve 2) diet to advance 3) gradual wt loss 4) f/u in 3-5 days REYMUNDO RENTERIA MD Jul 31, 2025 10:54
[2025-07-31] MEDS ORDERED: AMOX500T86 PO (11:37)
[2025-07-31] MEDS ORDERED: ACE3T PO (11:37)
--- NOTE | 2025-07-31 11:42 | DVHDS2 ---
Discharge Summary Date of Admission Jul 29, 2025 at 00:37 Date of Discharge: Jul 31, 2025 Admitting Diagnosis Acute cholecystitis Labs/Diagnostic Data: Laboratory Results Test 07/31/25 06:56 07/30/25 04:25 07/29/25 13:07 07/28/25 19:53 White Blood Count 11.5 10^3/uL (4.4-10.8) Red Blood Count 3.67 10^6/uL (4.0-5.20) Hemoglobin 11.5 g/dL (12.2-16.2) Hematocrit 34.8 % (36.0-46.0) Mean Corpuscular Volume 94.9 fL (80.0-100.0) Mean Corpuscular Hemoglobin 31.4 pg (28.0-32.0) Mean Corpuscular Hemoglobin Concent 33.1 g/dL (32.0-36.0) Red Cell Distribution Width 13.0 % (11.8-14.3) Platelet Count 449 10^3/uL (140-450) Mean Platelet Volume 7.7 fL (6.9-10.8) Neutrophils (%) (Auto) 74.3 % (37.0-80.0) Lymphocytes (%) (Auto) 18.1 % (10.0-50.0) Monocytes (%) (Auto) 6.8 % (0.0-12.0) Eosinophils (%) (Auto) 0.7 % (0.0-7.0) Basophils (%) (Auto) 0.1 % (0.0-2.0) Neutrophils # (Auto) 8.6 10 ^3/uL (1.6-8.6) Lymphocytes # (Auto) 2.1 10 ^3/uL (0.4-5.4) Monocytes # (Auto) 0.8 10 ^3/uL (0-1.3) Eosinophils # (Auto) 0.1 10 ^3/uL (0-0.8) Basophils # (Auto) 0 10 ^3/uL (0-0.2) Nucleated Red Blood Cells 0.0 % Total Bilirubin 0.6 mg/dL (0.2-1.0) Sodium Level 141 mmol/L (136-145) Potassium Level 3.9 mmol/L (3.5-5.1) Chloride Level 108 mmol/L (98-107) Carbon Dioxide Level 24 mmol/L (20-31) Anion Gap 9 (5-15) Blood Urea Nitrogen 7 mg/dL (9-23) Creatinine 0.61 mg/dL (0.550-1.02) Glomerular Filtration Rate Calc 119 mL/min (>90) BUN/Creatinine Ratio 11.5 (10.0-20.0) Serum Glucose 75 mg/dL (74-106) Calcium Level 8.4 mg/dL (8.7-10.4) Aspartate Amino Transferase (AST) 20 U/L (13-40) Alanine Aminotransferase (ALT) 20 U/L (7-40) Alkaline Phosphatase 34 U/L (46-116) Total Protein 6.0 g/dL (5.7-8.2) Albumin 3.7 g/dL (3.2-4.8) Prothrombin Time 10.3 sec (9.3-11.8) Prothrombin Time INR 0.97 (0.9-1.15) Activated Partial Thromboplast Time 28.8 SEC (24.5-34.5) Lipase 40 U/L (12-53) Test 07/28/25 19:45 Urine Color Yellow (Yellow) Urine Clarity Clear (Clear) Urine pH 6.0 (5.0-9.0) Urine Specific [place] 1.040 (1.001-1.035) Urine Protein Trace (Negative) Urine Ketones Trace (Negative) Urine Blood Negative /uL (Negative) Urine Nitrite Negative (Negative) Urine Bilirubin Negative (Negative) Urine Urobilinogen 2 mg/dL (Negative) Urine Leukocyte Esterase Negative /uL (Negative) Urine RBC <1 /hpf (0 - 4) Urine Microscopic WBC 4 /HPF (0-5) Urine Squamous Epithelial Cells Few /hpf (<5) Urine Calcium Oxalate Crystals Mod (None Seen) Urine Bacteria None seen /hpf (None Seen) Urine Mucus Few (None Seen) Urine Glucose Normal mg/dL (Normal) Urine Test Negative (Negative) Other Laboratory Tests 07/31/25 06:56 07/30/25 04:25 Brief Hx & Hospital Course: History of Present Illness The patient is a 34-year-old female with past medical history of asthma and anxiety who presented to [facility] ED with complaint of abdominal pain. Patient states she has been experiencing upper abdominal pain for the past month, progressively get worse in the past 2 days, associated with nausea and vomiting, getting worse today that prompted this visit. Patient reports she had an 2 weeks ago. Patient was seen and evaluated in the ED, laboratory data shows WBC 10.3, platelets 510, sodium 142, potassium 4.2, BUN 15, creatinine 0.67, glucose 94, calcium 9.9, lipase 40, blood pressure 134/94, heart rate 92, temperature 98.3 F, O2 saturation 99% on room air. Abdomen/pelvis CT revealing cholelithiasis with gallbladder wall measuring upper limits of normal, acute cholecystitis can not be excluded in the appropriate clinical setting. Increased hepatic echogenicity may reflect hepatic steatosis intrinsic hepatocellular disease. Patient was started on IV antibiotic regimen Zosyn, please see medication orders section in the computer. On my assessment, patient denied chest pain, no headache, no dizziness, no shortness of breaths, no abdominal pain, nausea or vomiting at this moment, no fever, no chills. Patient was admitted for further evaluation and medical management. Course of hospitalization: Patient was seen by surgery, undergoing laparoscopic cholecystectomy yesterday. Repeat lab work this a.m. is unremarkable. Patient is tolerating regular diet. Patient will be discharged home with continue antibiotic therapy in the form of Augmentin 500 mg p.o. b.i.d. for additional four days, as well as pain management with Tylenol No. 3 q.8 hours as needed for [id number] pain. She will follow up with Dr. Anderson in 1-2 weeks and her PCP in 1-2 weeks. Patient was agreeable with discharge plan. All questions answered. Physical examination General: Alert and Oriented x3. No acute distress. Well-nourished. Obese Eyes: EOMI. Anicteric. HENT: Moist mucous membranes. Lungs: Clear to auscultation bilaterally. No accessory muscle use. Cardiovascular: Regular rate and rhythm. No murmur. No JVD. Abdomen: Soft, non-tender and non-distended. No palpable masses. Abdominal surgical sites dry and intact Extremities: No edema. Non-tender. Skin: No rashes or lesions. Warm. Neurologic: No focal neurological deficits. CN II-XII grossly intact, but not individually tested. Psychiatric: Cooperative. Appropriate mood and affect. Total time spent with patient discussing and formulating plan of care: 35 minutes. This medical document was created using an electronic medical record system with [employer] dictation system. Although this document has been carefully reviewed, there may still be some phonetic and typographical errors. These areas are purely typographical due to imperfections of the software programs, and do not reflect any compromise in the patient's medical care. Consults/Reason for consult General surgery: Acute cystitis Operations or Procedures 07/30/2025: Laparoscopic cholecystectomy Condition at Discharge: Fair Final Diagnosis/Problems List -acute cholecystitis -obesity -leukocytosis, ruled out sepsis, sirs Discharge Disposition: Home Discharge Instruct/Medications Diet: Regular Activity: Light activity Activity comment: Do not lift anything greater than 5 lb for two weeks Follow Up/Referral: Follow up with Dr. Anderson in 1-2 weeks Follow up with PCP in 1-2 weeks Medications: Augmentin 500 mg p.o. b.i.d. x4 days Tylenol No. 3 q.8 hours as needed for [id number] pain Scheduled Amoxicillin & Pot Clavulanate (Augmentin), 1 TAB PO BID Semaglutide (Ozempic), 2 MG SC QWEEKLY, (Reported) Scheduled PRN Acetaminophen W/ Codeine (Tylenol W/Cod #3), 1 TAB PO Q8HP PRN 36 Discharge Statement: "Patient was advised to return to the ER or call 911 if any headaches, dizziness, shortness of breath, chest pain, abdominal pain, bleeding, fevers, or worsening of medical condition. Patient was counseled about treatment plan, medications, possible side effects, patientverbalized understanding. All questions were answered to the best of my ability. This discharge took greater then 30 minutes in planning, reviewing documentation, counseling the patient, and discussing with other team members." ASSESSMENT ASSESSMENT Assessment Acute cholecystitis Date of Service: Jul 31, 2025 Billing Provider: TERESA MORRISON NP Common Visit Codes: 98147-HCC/OBS DISCH DAY >30min TERESA MORRISON NP Jul 31, 2025 11:42
== END 2025-07-31 17:30 | disposition home or self-care (01) | DRG 263 ==
LOC: ER 18:59 → OVERFLOW 07-29 00:37 → EAST 07-29 16:59
PROVIDERS: ADMIT Nurse Practitioner Acute Care; ATTEND Nurse Practitioner Acute Care
PROC: 0FT44ZZ Resection of Gallbladder, Percutaneous Endoscopic Approach (ICD-10-PCS; principal; 2025-07-30 10:44)
DX: K80.12 Calculus of gallbladder with acute and chronic cholecystitis without obstruction (principal); K90.49 Malabsorption due to intolerance, not elsewhere classified; D75.839 Thrombocytosis, unspecified; K66.0 Peritoneal adhesions (postprocedural) (postinfection); J45.909 Unspecified asthma, uncomplicated; E66.9 Obesity, unspecified; F41.9 Anxiety disorder, unspecified; Z68.39 Body mass index [BMI] 39.0-39.9, adult; D72.829 Elevated white blood cell count, unspecified; R65.10 Systemic inflammatory response syndrome (SIRS) of non-infectious origin without acute organ dysfunction
CPT/HCPCS: 36415; 71045; 74177; 76705; 80053; 81001; 81025; 82247; 83690; 85025; 85610; 85730; 86850; 86900; 86901; 99291; G0378; J0131; J2003; J2250; J2405; J2543; J2704

== ENCOUNTER → 2025-08-06 | Emergency (ER) | payer MEDICAID ==
[~2025-08-06] VITALS: Ht 149.9 cm; Wt 75.1 kg
[~2025-08-06] MED LIST: ACE3T PO; AMOX500T86 PO; SEMA2INJ3 SC
[2025-08-06 14:35] VITALS: BP 118/66; PULSE 76; RESP 18; TEMP 97.9; O2SAT 98
== END | disposition left against medical advice (07) ==
LOC: ER 14:28
DX: Z48.00 Encounter for change or removal of nonsurgical wound dressing (principal); Z53.21 Procedure and treatment not carried out due to patient leaving prior to being seen by health care provider